=== PATIENT | male | born 1995 | race Caucasian/White ===

== ENCOUNTER 2017-10-21 23:46 | Emergency (ER) | payer BC ==
[2017-10-21 23:53] VITALS: BP 134/79
--- NOTE | 2017-10-22 00:07 | EDPHY ---
H & P Time Seen by Provider: 10/21/17 23:58 HPI/ROS: CHIEF COMPLAINT: Right index finger laceration HISTORY OF PRESENT ILLNESS: 22-year-old male right-hand dominant with up-to- date tetanus arrives via private vehicle complaining of right index finger laceration after he punched a drywall wall earlier this evening. Denies impacting other person. No paresthesia. No extensor deficits. PHYSICAL EXAM (Prior to examination, patient consented to physical exam, hands were washed and my usual and customary physical exam procedures followed) 1) GENERAL: Well-developed, well-nourished, alert and oriented. Appears to be in no acute distress. 2) HEAD: Normocephalic 3) HEENT: sclera anicteric 4) LUNGS: Breathing comfortably. 5) SKIN: Right index finger dorsal aspect PIP joint transverse 1.5 cm cm laceration 6) MUSCULOSKELETAL: Is able to hold extensor function at the MCP PIP DIP against resistance with no deficits. 7) NEUROLOGIC: Full sensation and two-point discrimination intact. Smoking Status: Never smoked Constitutional: Initial Vital Signs Temperature (C) 37.0 C 10/21/17 23:51 Heart Rate 98 10/21/17 23:51 Respiratory Rate 18 10/21/17 23:51 Blood Pressure 134/79 H 10/21/17 23:51 O2 Sat (%) 99 10/21/17 23:51 O2 Delivery Mode Room Air Allergies/Adverse Reactions: No Known Allergies Allergy (Unverified 10/21/17 23:53) Home Medications: Medication Instructions Recorded Cephalexin [Keflex] 500 mg PO TID 5 Days cap 10/22/17 MDM/Departure - [facility] Imaging Results: Imaging Impressions Hand X-Ray 10/21/17 23:58 Impression: 1. There is no acute osseous and amounted. 2. Sequela of prior surgical change to the middiaphyseal portion of the third metacarpal. Images reviewed myself Procedures: Procedure: Laceration repair. I explained the indications, risks and benefits for both laceration repair and anesthetic administration. Verbal consent was obtained from the patient. The laceration on the right index finger was anesthetized using 0.5% bupivicaine without epinephrine digital nerve block. After anesthetic administered the patient was observed for a period of time and had no apparent adverse effects. The wound was cleaned, prepped, draped in normal sterile fashion and explored to its base. No foreign body seen, no foreign bodies palpated. There were no deep structures involved. No gross tendon injury identified The wound was repaired with 5 simple interrupted 5 O Prolene sutures. The wound repair was simple. The procedure was performed by myself. Patient has been informed that scarring will occur, although efforts have been made to minimize this. Dressed with aluminum finger splint by ER staff. ED Course/Re-evaluation: Re-evaluation with serial examinations. Skin has been closed with sutures after cleanout in the ER. On examination I do not identify any a gross extensor deficits or signs of traumatic arthrotomy. However given that this is his dominant hand,, I think that follow up with Hand surgery is appropriate. I am starting him on prophylactic antibiotics and given him hand surgery follow- up information. He has been splinted. Usual and customary wound precautions instructions provided. He feels comfortable being discharged. Care of patient under supervision of secondary supervising physician Dr Otto . - Depart Disposition: Home, Routine, Self-Care Clinical Impression: Laceration of right index finger Qualifiers: Encounter type: initial encounter Damage to nail status: without damage Foreign body presence: without foreign body Qualified Code(s): S61.210A - Laceration without foreign body of right index finger without damage to nail, initial encounter Condition: Good Instructions: Cephalexin (By mouth), Laceration (ED), Care For Your Stitches ( ED) Additional Instructions: Return to the ER if you develop redness, swelling, discharge, warmth to the wound, red streaks going up your arm, or any other symptoms that concern you. Prescriptions: Cephalexin [Keflex] 500 mg PO TID 5 Days cap Referrals: Sundeep Washburn MD [Medical Doctor] - 1-2 days without fail
[2017-10-22] MEDS ORDERED: CEPHALEXIN 500MG PREPACK#4 BTL TAKEHOME ONE (00:31)
== END 2017-10-22 00:42 | disposition home or self-care (01) ==
PROC: 0HQFXZZ Repair Right Hand Skin, External Approach (ICD-10-PCS; principal; 2017-10-21)
DX: S61.210A Laceration without foreign body of right index finger without damage to nail, initial encounter (principal); W22.01XA Walked into wall, initial encounter
CPT/HCPCS: L3925